=== PATIENT | female | born 1980 | race American Indian/Alaskan Native ===

== ENCOUNTER 2019-03-11 11:35 | Emergency (ER) | payer OTHER ==
[2019-03-11 11:48] VITALS: BP 120/55
--- NOTE | 2019-03-11 11:53 | Emergency Department Report ---
<SUIMT BARFIELD - Last Filed: 03/11/19 11:48> ED Asthma HPI - General Chief Complaint: Adult Asthma Stated Complaint: ASTHMA/COLD SYM Source: patient Mode of arrival: Ambulatory Limitations: No Limitations - History of Present Illness Initial Comments: 39yo [place] female states that SOB, coughing and abdominal tenderness x 1 week after returning from [place]. Pt states that she has used her Ventolin inhaler 3-4 times a day with no relief. She further states that she has felt increased fatigue due to her coughing episodes. - Related Data Allergies Allergy/AdvReac Type Severity Reaction Status Date / Time Iodinated Contrast Media Allergy Unknown Verified 03/11/19 11:41 ED Past Medical Hx - Past Medical History Previous Medical History?: Yes Hx Asthma: Yes - Surgical History Past Surgical History?: No - Social History Smoking Status: Current Some Day Smoker Substance Use Type: Alcohol, Marijuana ED Physical Exam - General Limitations: No Limitations ED Disposition Condition: Stable <AMAN GONZALES - Last Filed: 03/11/19 13:13> ED Review of Systems ROS: Stated complaint: ASTHMA/COLD SYM Other details as noted in HPI ED Course Vital Signs 03/11/19 11:46 Temperature 98 F Pulse Rate 72 Respiratory 22 Rate Blood Pressure 120/55 [Right] O2 Sat by Pulse 100 Oximetry Critical care attestation.: If time is entered above; I have spent that time in minutes in the direct care of this critically ill patient, excluding procedure time.
[2019-03-11 12:38] LABS: HCG Qualitative,Urine Negative (Negative)
[2019-03-11 12:41] LABS: Bacteria,Urine 1+ /HPF (Negative); Bilirubin,Urine NEG (Negative); Blood,Urine SM (Negative); Color,Urine Yellow (Yellow); Mucus,Urine FEW /HPF; Protein,Urine <15 mg/dL mg/dL (Negative); Urobilinogen,Urine < 2.0 mg/dL (<2.0)
--- NOTE | 2019-03-11 13:20 | XRay Report ---
CHEST 2 VIEWS INDICATION: Shortness of breath. COMPARISON: None FINDINGS: Support devices: None. Heart: Within normal limits. Lungs/pleura: No acute air space or interstitial disease. No pneumothorax. Additional findings: None. IMPRESSION: No acute findings. Signer Name: Aubrey Villela Jr, MD Signed: 03/11/2019 1:15 PM Workstation Name: [id number]
--- NOTE | 2019-03-11 13:23 | Emergency Department Report ---
Minor Respiratory - HPI Chief Complaint: Adult Asthma Stated Complaint: ASTHMA/COLD SYM Time Seen by Provider: 03/11/19 12:21 Duration: 3 Days Severity: mild Minor Respiratory: Yes Able to Tolerate Fluids, Yes Cough (mucus productive only at night), No Rhinorrhea, No Sore Throat, No Ear Pain, No Sick Contacts, No Hemoptysis, No Chest Pain, No Shortness of Breath, No Fever Other History: 39-year-old female with a history of asthma presents to ED complaining of cough and cold-like symptoms for the past week. Patient states that she is also out of her asthma medication and thinks the cough and is flaring up her asthma. Patient denies fevers/chills/nausea vomiting. Patient states the cough is only productive and worsen at night. She denies shortness of breath or wheezing. ED Review of Systems ROS: Stated complaint: ASTHMA/COLD SYM Other details as noted in HPI Comment: All other systems reviewed and negative ED Past Medical Hx - Past Medical History Previous Medical History?: Yes Hx Asthma: Yes - Surgical History Past Surgical History?: No - Social History Smoking Status: Current Some Day Smoker Substance Use Type: Alcohol, Marijuana - Medications Home Medications: Home Medications Medication Instructions Recorded Confirmed Last Taken Type ALBUTEROL Inhaler (OR & NICU) 2 puff IH QID PRN #1 pump 03/11/19 Unknown Rx [ProAir HFA Inhaler] Acetamin/Codeine 120-12Mg/5 ml 5 ml PO TID PRN 4 Days #60 ml 03/11/19 Unknown Rx [Tylenol/Codeine] Benzonatate [Tessalon Perles] 100 mg PO Q8HR #20 capsule 03/11/19 Unknown Rx predniSONE [Deltasone] 20 mg PO QDAY #5 tab 03/11/19 Unknown Rx Minor Respiratory Exam - Exam General: Vital signs noted. No distress. Alert and acting appropriately. HEENT: Yes Moist Mucous Membranes, No Pharyngeal Erythema, No Pharyngeal Exudates, No Rhinorrhea, No Conjuctival Injection, No Frontal Tenderness, No Maxillary Tenderness Ear: Neither TM Bulge, Neither TM Erythema, Neither EAC Pain, Neither EAC Discharge Neck: Yes Supple, No Adenopathy Lungs: Yes Good Air Exchange, No Wheezes, No Ronchi, No Stridor, No Cough, No La bored Respirations, No Retractions, No Use of Accessory Muscles, No Other Abnormal Lung Sounds Heart: Yes Regular, No Murmur Abdomen: Yes Normal Bowel Sounds, No Tenderness, No Peritoneal Signs Skin: No Rash, No Edema Neurologic: Alert and oriented, no deficits. Musculoskeletal: Unremarkable. ED Course Vital Signs 03/11/19 11:46 Temperature 98 F Pulse Rate 72 Respiratory 22 Rate Blood Pressure 120/55 [Right] O2 Sat by Pulse 100 Oximetry ED Medical Decision Making - Radiology Data Radiology results: report reviewed, image reviewed Fluoro Time In Minutes: CHEST 2 VIEWS INDICATION: Shortness of breath. COMPARISON: None FINDINGS: Support devices: None. Heart: Within normal limits. Lungs/pleura: No acute air space or interstitial disease. No pneumothorax. Additional findings: None. IMPRESSION: No acute findings. Signer Name: Aubrey Izquierdo Jr, MD Signed: 03/11/2019 1:15 PM Workstation Name: [id number] Transcribed By: TTR Dictated By: AUBREY IZQUIERDO JR, MD Electronically Authenticated By: AUBREY IZQUIERDO JR, MD Signed Date/Time: 03/11/19 1315 - Medical Decision Making 39-year-old female presents with bronchitis. Patient has enlargement and a Rister distress or acute distress. Condition had no events in the ED. X-ray shows no acute findings discussed findings with the patient. Patient will be discharged home with a refill of asthma medication and indications for symptoms of bronchitis. Vital signs are normal patient is satting 100% discharge sure she was given Critical care attestation.: If time is entered above; I have spent that time in minutes in the direct care of this critically ill patient, excluding procedure time. ED Disposition Clinical Impression: Bronchitis Asthmatic bronchitis without complication Qualifiers: Asthma severity: mild Asthma persistence: intermittent Qualified Code(s): J45.20 - Mild intermittent asthma, uncomplicated Disposition: DC-01 TO HOME OR SELFCARE Is pt being admited?: No Does the pt Need Aspirin: No Condition: Stable Instructions: Acute Bronchitis (ED), Chronic Bronchitis (ED) Additional Instructions: Make sure to follow up with the primary care physician as discussed. Take all your medications as you've been prescribed. If you have any worsening symptoms or develop new symptoms please return to ED immediately. Prescriptions: predniSONE [Deltasone] 20 mg PO QDAY #5 tab ALBUTEROL Inhaler (OR & NICU) [ProAir HFA Inhaler] 2 puff IH QID PRN #1 pump PRN Reason: Shortness Of Breath Benzonatate [Tessalon Perles] 100 mg PO Q8HR #20 capsule Acetamin/Codeine 120-12Mg/5 ml [Tylenol/Codeine] 5 ml PO TID PRN 4 Days #60 ml PRN Reason: Pain Referrals: PRIMARY CARE, [Primary Care Provider] - 3-5 Days [facility] [Provider Group] - 3-5 Days [facility] [Outside] - 3-5 Days [facility] [Outside] - 3-5 Days Forms: Accompanied Note, Work/School Release Form(ED) Time of Disposition: 14:40
== END 2019-03-11 14:53 | disposition home or self-care (01) ==
LOC: ED 11:35
DX: J45.909 Unspecified asthma, uncomplicated (principal); F17.200 Nicotine dependence, unspecified, uncomplicated; F12.10 Cannabis abuse, uncomplicated; Z79.899 Other long term (current) drug therapy; Z91.041 Radiographic dye allergy status
CPT/HCPCS: 71046; 81001; 81025